=== PATIENT | female | born 1970 | race Caucasian/White ===

== ENCOUNTER 2016-11-22 17:21 | Emergency (ER) | payer OTHER ==
[~2016-11-22] VITALS: Ht 167.6 cm; Wt 92.3 kg
[~2016-11-22 17:21] MED LIST: DOCU-42; OXYC-176; POLY17PO13
[2016-11-22 17:26] VITALS: BP 129/84; PULSE 66; RESP 13; O2SAT 97
--- NOTE | 2016-11-22 18:10 | ED.REPORT ---
HPI-Abd Pain F 40 and Over Date of Service Nov 22, 2016 ED Provider: Mustapha Del Cid MD The patient is a 46-year-old patient with a history of hysterectomy who presents to the ED from Urgent Care complaining of abdominal pain onset yesterday. The pt describes the pain is localized at lower left quadrant, similar to the pain of a rupturing cyst, with characteristics of cramping and sharp pain. The patient also admits to decreased appetite and slightly veneer stock layer stool than usual. She denies diarrhea, constipation, hematochezia, melena, nausea, vomiting, productive cough, dysuria, urinary frequency, urinary urgency or fever. Eating or drinking neither worsens nor improves the symptoms. The patient was seen in Urgent Care today and her urine contained white blood cells. Nursing Notes Stated Complaint: ABDOMINAL PAIN Chief Complaint: Female Abdominal Pain Nursing Notes Reviewed: Yes Allergies: Coded Allergies: Sulfa (Sulfonamide Antibiotics) (Verified Allergy, Intermediate, RASH, 11/22) Shellfish (Verified Allergy, Unknown, SHELLFISH ALLERGY NOTED: GI UPSET, 01/11/09) TAPE (Verified Allergy, Unknown, RED RASH, 12/11/04) latex (Verified Allergy, Unknown, ITCHY WITH WEARING OF GLOVES, 01/11/09) peanut (Verified Allergy, Unknown, 01/11/09) amoxicillin (Verified Adverse Reaction, Intermediate, GI UPSET, 11/22/16) Scheduled Fluticasone Propionate (Flonase Allergy Relief) 50 Mcg/Actuation [place].susp 9.9 ML NS DAILY Scheduled PRN Ondansetron ODT (Ondansetron ODT) 8 Mg Tab.rapdis 8 MG PO QID PRN PRN For Nausea Miscellaneous Medications Docusate Sod-Expunged Drug, Do Not Renew! (Docusate Sod-Expunged Drug, Do Not Renew!) 100 Mg Capsule Oxycodone/APAP-Expunged Drug, Do Not Renew! (Percocet 5/325-Expunged Drug, Do Not Renew!) 1 Each Tablet PEG 3350-Expunged Drug, Do Not Renew! (Miralax-Expunged Drug, Do Not Renew!) 12 Ea Powd.pack General Time Seen by MD: 18:07 Chief Complaint Abdominal pain Hx Obtained From: Patient Arrived By: Walk-in Sudden in Onset?: No Onset Occurred: Yesterday Symptom Duration: Since onset Recent Healthcare: No recent hospitalization, Recent doctor visit Similar Sx Previous: No Past Medical History Past Medical History none reported Past Surgical History Reports: Hysterectomy Smoking History Unknown if Ever Smoker Ambulatory Status Independent Review of Systems denies melena Constitutional: Denies: Fever Respiratory: Denies: Non-productive cough, Prod cough, clear, Shortness of breath GI: Reports: Abdominal pain, Denies: Bloody/tarry stool, Constipation, Diarrhea, Nausea, Vomiting Female: Denies: Dysuria, Hematuria, Urinary frequency, Urinary urgency Musculoskeletal: Denies: Back pain, Neck pain Complete sys rev & neg: except as marked. Physical Exam Vital Signs Vital Signs (First) Date Time Temp Pulse Resp B/P Pulse Ox O2 Delivery O2 Flow Rate FiO2 11/22/16 17:26 36.7 66 13 129/84 97 Room Air Initial VS: Reviewed General/Constitutional: Awake, Alert, Well hydrated moderate discomfort Respiratory / Chest: Atraumatic, Breath sounds NL, Breath sounds = bilat, No respiratory distress Cardiovascular: Heart rate NL, Regular rhythm, Heart sounds NL Abdomen: Atraumatic, Soft, Non-tender exquisitely tender to minimal palpation in the LLQ Back: Atraumatic, Full range of motion Head / Eyes: Atraumatic, Normocephalic, PERRL, EOMI ENT: Atraumatic, Airway patent, Mucous membranes moist Skin: Atraumatic, Color NL, No rash, Warm, Dry Neurologic: Oriented X3, Speech NL, No motor deficits, No sensory deficits Neck: Atraumatic, Supple, Full range of motion Upper Extremity / MS: Atraumatic, Full range of motion Lower Extremity / Pelvis / MS: Atraumatic, Full range of motion Psychiatric: Affect NL, Mood NL Interpretation & Diagnostics Lab Results Interpretation Result Diagram: 11/22/16 1830 11/22/16 1845 Test 11/22/16 18:30 11/22/16 18:45 11/22/16 19:00 White Blood Count 8.8th/mm3 (3.8-10.1) Red Blood Count 4.99mil/mm3 (3.90-5.20) Hemoglobin 15.8g/dL (12.0-15.6) Hematocrit 44.7% (35.0-46.0) Mean Corpuscular Volume 89.6fL (81-100) Mean Corpuscular Hemoglobin 31.7pg (27.0-35.0) Mean Corpuscular Hemoglobin Concent 35.3% (32.0-37.0) Red Cell Distribution Width 12.9% (12.3-15.4) Platelet Count 272bil/L (150-400) Neutrophils (%) (Auto) 56.3% (40-74) Lymphocytes (%) (Auto) 35.1% (14-46) Monocytes (%) (Auto) 7.3% (4-12) Eosinophils (%) (Auto) 0.7% (0-5) Basophils (%) (Auto) 0.5% (0-3) Prothrombin Time 10.4sec (8.1-12.5) Prothromb Time International Ratio 0.97ratio Sodium Level 138mEq/L (134-144) Potassium Level 3.6mEq/L (3.5-5.2) Chloride Level 101mEq/L (97-108) Carbon Dioxide Level 20mmol/L (18-29) Blood Urea Nitrogen 7mg/dL (6-24) Creatinine 0.68mg/dL (0.57-1.00) Estimat Glomerular Filtration Rate 132mL/min (>59) Glucose Level 89mg/dL (60-99) Lactic Acid Level 1.3mmol/L (0.4-2.0) Calcium Level 9.3mg/dL (8.5-10.1) Magnesium Level 2.0mg/dL (1.6-2.6) Total Bilirubin 0.6mg/dL (0.0-1.2) Aspartate Amino Transf (AST/SGOT) 19U/L (0-50) Alanine Aminotransferase (ALT/SGPT) 30U/L (0-32) Alkaline Phosphatase 73U/L (25-150) Total Protein 7.9g/dL (6.4-8.4) Albumin 4.2g/dL (3.4-5.0) Lipase 22U/L (13-60) Urine Color Yellow (YELLOW) Urine Appearance Clear (CLEAR,HAZY) Urine pH 5.5 (5.0-8.0) Urine Specific [place] 1.010 (1.003-1.035) Urine Protein Negativemg/dL (NEG,TRACE) Urine Glucose (UA) Negativemg/dL (NEGATIVE) Urine Ketones 15mg/dL (NEGATIVE) Urine Occult Blood Small (NEGATIVE) Urine Nitrite Negative (NEGATIVE) Urine Bilirubin Negative (NEGATIVE) Urine Urobilinogen Normalmg/dL (NORMAL) Urine Leukocyte Esterase Moderate (NEGATIVE) Urine RBC 0-2/hpf (0-2) Urine WBC 6-10/hpf (0-5) Urine Epithelial Cells Moderate/hpf (NONE-MOD) Urine Crystals None seen (NONE SEEN) Urine Bacteria Few/hpf (NONE-FEW) Urine Hyaline Casts None/lpf (NONE) Urine Granular Casts None seen (NONE SEEN) Urine Waxy Casts None seen (NONE SEEN) Urine Red Blood Cell Casts None seen (NONE SEEN) Urine White Blood Cell Casts None seen (NONE SEEN) Urine Mucus None seen (None Seen) Urine Trichomonas None seen (NONE SEEN) Urine Yeast None (NONE SEEN) Urinalysis Comment None Urine Culture Reflexed Indicated CT Abd / Pelvis Interpretation IMPRESSION: 1. Focal area of mesenteric fat stranding with a minimal appearance of inflammation of the adjacent transverse colon. Overall findings are suggestive of a primary mesenteric fat process of inflammation such as panniculitis with subsequent adjacent small bowel inflammation or epiploic appendagitis. Dictated by: Ele Whittington M.D. on 11/22/2016 at 21:00 Approved by: Ele Whittington M.D. on 11/22/2016 at 21:05 Interpretation / Wet Read by: Interpret - Radiologist Re-Eval/Medical Decision Med Decision/Clinical Course 46-year-old presents with abdominal pain that seems clinically consistent with diverticulitis, but in fact has apparent epiploic appendicitis. She is stable for discharge with ibuprofen or Naprosyn, Vicodin when necessary. Prompt return if worse despite treatment. Source of Hx: Old records Re-Evaluation/Progress : Time of Eval: 21:20 Patient Status: Condition improved Re-Evaluation/Progress Note: Discussed diagnosis and plan for discharge. The patient understands and agrees with plan. All questions addressed at this time. Counseled Regarding: Diagnosis, Lab results, Need for follow-up, When/why to return to ED Discharge & Departure Primary Impression: Epiploic appendagitis Additional Impression: Abdominal pain Disposition: Home Discharge Condition All VS Reviewed: Yes Condition: Stable Patient Instructions: Acute Abdominal Pain (ED) Additional Instructions: The CT scan shows a process called epiploic appendagitis. This is a benign, self-limited process. It does not generally result in true peritonitis with life threatening consequences. It also generally does not require surgery. It is treated typically with anti-inflammatories, plus/minus opioid pain medicines initially if needed. Begin with ibuprofen four times daily or Naprosyn twice daily. You may use Vicodin up to four times daily if needed additionally. Follow-up with your doctor in the office. Return here promptly if worsening despite treatment, particularly if you develop fever or other new symptoms of concern. Referrals: Roz Duong MD (PCP) Scribe Attestation Portions of this note were transcribed by Ava Zamarripa and Rowan Neumann. I, Dr. Del Cid personally performed the history, physical exam and medical decision-making; I reviewed and confirmed the accuracy of the information in the transcribed note. copies to: Roz Duong MD, Christopher W MD Nov 22, 2016 18:10 Ava Zamarripa Nov 22, 2016 18:24 ROWAN NEUMANN Nov 22, 2016 19:15
[2016-11-22] MEDS ORDERED: FLUT9.9S NS (18:16)
[2016-11-22] MEDS ORDERED: 0.9% Sodium Chloride 1,000 ML IV ONE (18:21)
[2016-11-22] MEDS ORDERED: Ondansetron 2 mg/mL 2 mL Inj IVPUSH ONE (18:25)
[2016-11-22] MEDS ORDERED: HYDROmorphone 1 mg/mL Inj IVPUSH ONE (18:25)
[2016-11-22] MEDS ORDERED: Ketorolac 15 mg/mL Inj IVPUSH ONE (18:25)
[2016-11-22 18:38] LABS: BASOPHILS % (AUTO) 0.5 % (0-3); EOSINOPHILS % (AUTO) 0.7 % (0-5); MONOCYTES % (AUTO) 7.3 % (4-12); Mean Corpuscular Hemoglobin 31.7 pg (27.0-35.0); Mean Corpuscular Volume 89.6 fL (81-100); NEUTROPHILS % (AUTO) 56.3 % (40-74); Platelet Count 272 bil/L (150-400)
[2016-11-22 18:56] LABS: INR 0.97 ratio
[2016-11-22 20:38] LABS: APPEARANCE,URINE CLEAR (CLEAR,HAZY); COLOR,URINE YELLOW (YELLOW); OCCULT BLOOD,URINE SMALL (NEGATIVE); PH,URINE 5.5 (5.0-8.0); UROBILINOGEN,URINE NORMAL (NORMAL)
--- NOTE | 2016-11-22 21:07 | DRSVH ---
PROCEDURE: CT ABDOMEN AND PELVIS WITH CONTRAST ([id number]) INDICATIONS: llq abdo pain TECHNIQUE: After the administration of intravenous contrast, 5 mm thick sections acquired from the diaphragm to the symphysis. 5 mm coronal and sagittal reformats were acquired. For radiation dose reduction, the following was used: automated exposure control, adjustment of mA and/or kV according to patient siz e. COMPARISON: None. FINDINGS: Image quality: Excellent. ABDOMEN: Lung bases: Lung bases are clear. Heart size is normal. Solid organs: Liver and spleen are normal in size and enhancement. Hepatic steatosis is present. Gal lbladder demonstrates independent small area of calcification. Biliary system is non dilated. Pancr eas enhances normally. Left adrenal nodule is present measuring 12 mm. No priors are available for co mparison. Kidneys demonstrate normal size and enhancement, without hydronephrosis. Peritoneum and bowel: Bowel loops demonstrate normal wall thickness and caliber. No free fluid or a ir. Minimal scattered diverticula are present. There is a focal area of mesenteric fat stranding in the anterior left paracentral mid/lower abdomen. There is a minimal appearance of inflammation of the adjacent transverse colon. Nodes and vessels: No retroperitoneal or mesenteric adenopathy by size criteria. Aorta and inferior vena cava are normal in size. Miscellaneous: No ventral hernias. PELVIS: Genitourinary: Bladder wall thickness is normal. Miscellaneous: No inguinal hernias or adenopathy. Bones: No suspicious bony lesions. No vertebral body compression fractures. IMPRESSION: 1. Focal area of mesenteric fat stranding with a minimal appearance of inflammation of the adjacent t ransverse colon. Overall findings are suggestive of a primary mesenteric fat process of inflammation such as panniculitis with subsequent adjacent small bowel inflammation or epiploic appendagitis. Dictated by: Ele Whittington M.D. on 11/22/2016 at 21:00 Approved by: Ele Whittington M.D. on 11/22/2016 at 21:05
[2016-11-22] MEDS ORDERED: _Ondansetron ODT 4 mg Tablet PO PRN (21:25)
[2016-11-22] MEDS ORDERED: _HYDROcodone/APAP 5-325 mg Tablet PO PRN (21:25)
[2016-11-22] MEDS ORDERED: ONDA8TAB10 PO (21:33)
[2016-11-22 22:10] VITALS: BP 122/83; PULSE 60; RESP 16; O2SAT 95
== END 2016-11-22 22:12 | disposition home or self-care (01) ==
LOC: SED 17:21
DX: K55.9 Vascular disorder of intestine, unspecified (principal); R10.32 Left lower quadrant pain; Z90.710 Acquired absence of both cervix and uterus; Z88.1 Allergy status to other antibiotic agents; Z88.2 Allergy status to sulfonamides; Z91.040 Latex allergy status
CPT/HCPCS: 36415; 74177; 80053; 81000; 83605; 83690; 83735; 85025; 85610; 87086; 87088; 87147; 96361; 96374; 96375; 96376; 99285; J1170; J1200; J1885; J2405; J7030; Q9967